=== PATIENT | male | born 1980 | race Caucasian/White ===

== ENCOUNTER → 2020-11-18 | Outpatient (CLI) | payer BC, OTHER ==
[~2020-11-18] MED LIST: MYCOSTATIN100000 UTS PO
== END ==
LOC: US 07:47
DX: R10.11 Right upper quadrant pain (principal); N50.89 Other specified disorders of the male genital organs; N43.3 Hydrocele, unspecified; N50.3 Cyst of epididymis; F41.9 Anxiety disorder, unspecified; Z87.891 Personal history of nicotine dependence
CPT/HCPCS: 76700; 76870

== ENCOUNTER → 2020-12-02 | Outpatient (CLI) | payer BC, OTHER ==
[2020-12-02 09:44] LABS: HEMOGLOBIN 16.4 gm/dl (14.0-17.5); RED BLOOD COUNT 5.35 M/UL (4.20-5.50)
[2020-12-02 13:58] LABS: BUN/CREATININE RATIO 12 (0-10)
== END ==
LOC: LAB 09:15
PROVIDERS: Physician Assistant
DX: R53.83 Other fatigue (principal); K76.0 Fatty (change of) liver, not elsewhere classified; E66.9 Obesity, unspecified
CPT/HCPCS: 36415; 80053; 80061; 84439; 84443; 85025